=== PATIENT | female | born 1965 | race Caucasian/White ===

== ENCOUNTER 2018-08-11 15:26 | Inpatient (IN) | payer OTHER ==
[2018-08-11] MEDS ORDERED: BISACODYL 10 MG SUPP PR (17:30)
[2018-08-11] MEDS: CEFTRIAXONE 1 GM/50 ML (PMX) 50 ML IVPB (17:58)
[2018-08-11] MEDS: SOD CHLORIDE 0.9% 1,000 ML IV (17:58)
[2018-08-11] MEDS: LORAZEPAM 2 MG INJ IV ×2 (18:12→22:16)
[2018-08-11] MEDS: ALBUTEROL 0.083% (NEB) 2.5 MG/3 ML AMP HHN (20:57)
[2018-08-11] MEDS: IPRATROPIUM (NEB) 0.5 MG/2.5 ML AMP HHN (20:57)
[2018-08-11] MEDS: CHLORDIAZEPOXIDE 25 MG CAP PO (22:09)
[2018-08-11] MEDS: HEPARIN 5,000 UNIT/1 ML VIAL SC (22:09)
[2018-08-11] MEDS: morphine 2 MG INJ IV (22:09)
[2018-08-12] MEDS: IPRATROPIUM (NEB) 0.5 MG/2.5 ML AMP HHN ×6 (01:31→19:03)
[2018-08-12] MEDS: ALBUTEROL 0.083% (NEB) 2.5 MG/3 ML AMP HHN ×4 (01:31→19:03)
[2018-08-12] MEDS: PANTOPRAZOLE (EC) 40 MG TAB PO (05:24)
[2018-08-12] MEDS: HEPARIN 5,000 UNIT/1 ML VIAL SC ×2 (05:25→21:01)
[2018-08-12 08:07] LABS: ANION GAP 8 (5-13); BLOOD UREA NITROGEN 13 mg/dl (7-20); CARBON DIOXIDE 29 mmol/L (21-31); CHLORIDE 105 mmol/L (97-110); CREATININE 0.82 mg/dl (0.44-1.00); Estimated GFR > 60 mL/min (>60); GLUCOSE 100 mg/dl (70-220); POTASSIUM 3.6 mmol/L (3.5-5.1); SODIUM 142 mmol/L (135-144)
[2018-08-12] MEDS ORDERED: MULTIVITAMINS 10 ML, THIAMINE 100 MG, FOLIC ACID 1 MG in SOD CHLORIDE 0.9% 1,000 ML IVPB (09:00)
[2018-08-12] MEDS: THIAMINE 100 MG TAB PO (09:22)
[2018-08-12] MEDS: DOCUSATE SODIUM 100 MG CAP PO (09:22)
[2018-08-12] MEDS: MULTIVITAMINS/MINERALS TAB PO (09:22)
[2018-08-12] MEDS: CHLORDIAZEPOXIDE 25 MG CAP PO ×3 (09:22→20:57)
[2018-08-12] MEDS: FOLIC ACID 1 MG TAB PO (09:22)
[2018-08-12] MEDS: morphine 2 MG INJ IV ×3 (10:57→21:37)
[2018-08-12] MEDS: SOD CHLORIDE 0.9% 1,000 ML IV (13:47)
[2018-08-12] MEDS: CEFTRIAXONE 1 GM/50 ML (PMX) 50 ML IVPB (17:32)
[2018-08-13] MEDS: ALBUTEROL 0.083% (NEB) 2.5 MG/3 ML AMP HHN ×4 (00:36→20:02)
[2018-08-13] MEDS: IPRATROPIUM (NEB) 0.5 MG/2.5 ML AMP HHN ×6 (00:36→20:02)
[2018-08-13] MEDS: morphine 2 MG INJ IV ×4 (04:05→20:21)
[2018-08-13] MEDS: LORAZEPAM 2 MG INJ IV ×3 (04:34→21:18)
[2018-08-13] MEDS: PANTOPRAZOLE (EC) 40 MG TAB PO (05:08)
[2018-08-13 06:29] LABS: WHITE BLOOD COUNT 3.2 10^3/ul (4.8-10.8)
[2018-08-13 06:29] LABS: ABNORMAL IP MESSAGE 1; HEMATOCRIT 38.4 % (37.0-47.0); HEMOGLOBIN 12.5 g/dl (12.0-16.0); MEAN CORPUSCULAR HEMOGLOBIN 32.9 pg (29.0-33.0); MEAN CORPUSCULAR HGB CONC 32.6 g/dl (32.0-37.0); MEAN CORPUSCULAR VOLUME 101.1 fl (82.0-101.0); MEAN PLATELET VOLUME 9.3 fl (7.4-10.4); PLATELET COUNT 132 10^3/UL (140-415); RED CELL DISTRIBUTION WIDTH 16.7 % (11.5-14.5)
[2018-08-13 06:33] LABS: ADD MAN DIFF? YES; POSITIVE DIFF @See below
[2018-08-13 06:58] LABS: ANION GAP 9 (5-13); BLOOD UREA NITROGEN 16 mg/dl (7-20); CALCIUM 9.9 mg/dl (8.4-10.2); CARBON DIOXIDE 26 mmol/L (21-31); CHLORIDE 108 mmol/L (97-110); CREATININE 0.75 mg/dl (0.44-1.00); Estimated GFR > 60 mL/min (>60); GLUCOSE 109 mg/dl (70-220); POTASSIUM 3.8 mmol/L (3.5-5.1); SODIUM 143 mmol/L (135-144)
[2018-08-13] MEDS: FOLIC ACID 1 MG TAB PO (08:34)
[2018-08-13] MEDS: CHLORDIAZEPOXIDE 25 MG CAP PO ×3 (08:34→20:22)
[2018-08-13] MEDS: MULTIVITAMINS/MINERALS TAB PO (08:34)
[2018-08-13] MEDS: THIAMINE 100 MG TAB PO (08:34)
[2018-08-13] MEDS: HEPARIN 5,000 UNIT/1 ML VIAL SC ×2 (08:37→20:24)
[2018-08-13 10:42] LABS: ANISOCYTOSIS 1+ (0-0); BAND NEUTROPHILS #M 0.1 10^3/ul (0.0-0.6); BAND NEUTROPHILS % (M) 6 % (0-4); BASOPHILS % (M) 2 % (0-2); BURR CELLS 1+ (0-0); EOSINOPHILS % (M) 5 % (0-7); LYMPHOCYTES #M 0.9 10^3/ul (0.8-2.9); LYMPHOCYTES % (M) 31 % (15-51); METAMYELOCYTES %M 3 % (0-0); MONOCYTE #M 0.6 10^3/ul (0.3-0.9); MONOCYTES % (M) 19 % (0-11); MYELOCYTES % (M) 1 % (0-0); PLATELET ESTIMATE DECREASED; POLYCHROMASIA 2+ (0-0); REACTIVE LYMPHOCYTES% (M) 2 % (0-0); SEGMENTED NEUTROPHILS (M) % 31 % (39-77); SMUDGE%M 9 % (0-0)
[2018-08-13] MEDS: SOD CHLORIDE 0.9% 1,000 ML IV (11:50)
[2018-08-13] MEDS: CEFTRIAXONE 1 GM/50 ML (PMX) 50 ML IVPB (17:18)
[2018-08-14] MEDS: morphine 2 MG INJ IV ×4 (00:37→13:59)
[2018-08-14] MEDS: LORAZEPAM 2 MG INJ IV ×5 (01:21→22:39)
[2018-08-14] MEDS: IPRATROPIUM (NEB) 0.5 MG/2.5 ML AMP HHN ×6 (02:03→20:44)
[2018-08-14] MEDS: ALBUTEROL 0.083% (NEB) 2.5 MG/3 ML AMP HHN ×4 (02:03→20:00)
[2018-08-14] MEDS: SOD CHLORIDE 0.9% 1,000 ML IV ×2 (05:44→08:25)
[2018-08-14] MEDS: PANTOPRAZOLE (EC) 40 MG TAB PO (05:45)
[2018-08-14] MEDS: THIAMINE 100 MG TAB PO (08:26)
[2018-08-14] MEDS: HEPARIN 5,000 UNIT/1 ML VIAL SC ×2 (08:26→20:43)
[2018-08-14] MEDS: MULTIVITAMINS/MINERALS TAB PO (08:26)
[2018-08-14] MEDS: CHLORDIAZEPOXIDE 25 MG CAP PO ×3 (08:26→20:42)
[2018-08-14] MEDS: FOLIC ACID 1 MG TAB PO (08:26)
[2018-08-14] MEDS: CEFTRIAXONE 1 GM/50 ML (PMX) 50 ML IVPB (17:15)
[2018-08-14] MEDS: IBUPROFEN 400 MG TAB PO (17:50)
[2018-08-14] MEDS: ACETAMINOPHEN 325 MG TAB PO (20:42)
[2018-08-15] MEDS: IPRATROPIUM (NEB) 0.5 MG/2.5 ML AMP HHN ×6 (01:00→20:41)
[2018-08-15] MEDS: ALBUTEROL 0.083% (NEB) 2.5 MG/3 ML AMP HHN ×4 (01:15→20:00)
[2018-08-15] MEDS: KETOROLAC 15 MG INJ IV ×3 (05:10→20:52)
[2018-08-15] MEDS: PANTOPRAZOLE (EC) 40 MG TAB PO (05:18)
[2018-08-15] MEDS: LORAZEPAM 2 MG INJ IV ×3 (06:56→21:51)
[2018-08-15] MEDS: FOLIC ACID 1 MG TAB PO (08:11)
[2018-08-15] MEDS: MULTIVITAMINS/MINERALS TAB PO (08:11)
[2018-08-15] MEDS: CHLORDIAZEPOXIDE 25 MG CAP PO ×3 (08:12→20:49)
[2018-08-15] MEDS: THIAMINE 100 MG TAB PO (08:12)
[2018-08-15] MEDS: HEPARIN 5,000 UNIT/1 ML VIAL SC ×2 (08:13→20:51)
[2018-08-15 08:28] LABS: ALANINE AMINOTRANSFERASE 197 IU/L (13-69); ALBUMIN 3.7 g/dl (3.3-4.9); ALBUMIN/GLOBULIN RATIO 1.32; ALKALINE PHOSPHATASE 134 IU/L (42-121); ANION GAP 6 (5-13); ASPARTATE AMINO TRANSFERASE 150 IU/L (15-46); BILIRUBIN,INDIRECT 0.7 mg/dl (0-1.1); BILIRUBIN,TOTAL 0.7 mg/dl (0.2-1.3); BLOOD UREA NITROGEN 12 mg/dl (7-20); CALCIUM 9.4 mg/dl (8.4-10.2); CARBON DIOXIDE 28 mmol/L (21-31); CHLORIDE 108 mmol/L (97-110); CREATININE 0.72 mg/dl (0.44-1.00); Estimated GFR > 60 mL/min (>60); GLUCOSE 86 mg/dl (70-220); POTASSIUM 4.2 mmol/L (3.5-5.1); SODIUM 142 mmol/L (135-144); TOTAL PROTEIN 6.5 g/dl (6.1-8.1)
[2018-08-15 09:46] LABS: FOLATE 17.4 ng/ml (2.8-20.0)
[2018-08-15] MEDS: LAMOTRIGINE 25 MG TAB PO ×2 (11:22→20:49)
[2018-08-15] MEDS: VENLAFAXINE 75 MG TABLET PO (11:30)
[2018-08-15] MEDS: ONDANSETRON 4 MG INJ IV ×2 (12:32→20:52)
[2018-08-15] MEDS: SOD CHLORIDE 0.9% 1,000 ML IV ×2 (14:14→22:00)
[2018-08-15] MEDS: CEFTRIAXONE 1 GM/50 ML (PMX) 50 ML IVPB (18:00)
[2018-08-15] MEDS: DOCUSATE SODIUM 100 MG CAP PO (20:49)
[2018-08-16] MEDS: IPRATROPIUM (NEB) 0.5 MG/2.5 ML AMP HHN ×4 (01:00→17:00)
[2018-08-16] MEDS: ALBUTEROL 0.083% (NEB) 2.5 MG/3 ML AMP HHN ×3 (01:44→13:31)
[2018-08-16] MEDS: PANTOPRAZOLE (EC) 40 MG TAB PO (05:32)
[2018-08-16] MEDS: KETOROLAC 15 MG INJ IV ×2 (05:32→11:43)
[2018-08-16 06:38] LABS: ADD MAN DIFF? NO
[2018-08-16 06:44] LABS: ABNORMAL IP MESSAGE 1; BASOPHIL # 0.1 10^3/ul (0.0-0.1); BASOPHILS % 3.2 % (0.0-2.0); EOSINOPHILS # 0.1 10^3/ul (0.0-0.5); EOSINOPHILS % 2.8 % (0.0-7.0); HEMATOCRIT 34.9 % (37.0-47.0); HEMOGLOBIN 11.5 g/dl (12.0-16.0); LYMPHOCYTES % 33.6 % (15.0-51.0); MEAN PLATELET VOLUME 9.4 fl (7.4-10.4); MONOCYTE # 0.7 10^3/ul (0.3-0.9); MONOCYTES % 23.3 % (0.0-11.0); NEUTROPHILS % 33.6 % (39.0-77.0); PLATELET COUNT 244 10^3/UL (140-415); RED BLOOD COUNT 3.49 10^6/ul (4.20-5.40)
[2018-08-16 06:44] LABS: WHITE BLOOD COUNT 2.8 10^3/ul (4.8-10.8)
[2018-08-16] MEDS: LORAZEPAM 2 MG INJ IV (06:45)
[2018-08-16 07:09] LABS: POSITIVE DIFF @See below
[2018-08-16] MEDS: LAMOTRIGINE 25 MG TAB PO (08:26)
[2018-08-16] MEDS: VENLAFAXINE 75 MG TABLET PO (08:26)
[2018-08-16] MEDS: FOLIC ACID 1 MG TAB PO (08:27)
[2018-08-16] MEDS: HEPARIN 5,000 UNIT/1 ML VIAL SC (08:27)
[2018-08-16] MEDS: MULTIVITAMINS/MINERALS TAB PO (08:27)
[2018-08-16] MEDS: THIAMINE 100 MG TAB PO (08:27)
[2018-08-16] MEDS: CHLORDIAZEPOXIDE 25 MG CAP PO ×2 (08:27→13:27)
[2018-08-16] MEDS: ONDANSETRON 4 MG INJ IV (09:30)
[2018-08-16] MEDS: SOD CHLORIDE 0.9% 1,000 ML IV (14:41)
== END 2018-08-16 17:15 | disposition home health service (06) | DRG 897 ==
LOC: PP2 15:26 → 5EC 19:24
DX: F10.231 Alcohol dependence with withdrawal delirium (principal); D61.818 Other pancytopenia; N39.0 Urinary tract infection, site not specified; D64.9 Anemia, unspecified; M54.5 Low back pain; F31.9 Bipolar disorder, unspecified; R94.5 Abnormal results of liver function studies
CPT/HCPCS: 76705; 80048; 80053; 82607; 82746; 84703; 85025; 87081; 94640; 94664; 97116; 97161; 97530

== ENCOUNTER 2018-09-09 16:50 | Inpatient (IN) | payer OTHER ==
[2018-09-09] MEDS ORDERED: ACETAMINOPHEN 325 MG TAB PO (18:30)
[2018-09-09] MEDS: LORAZEPAM 2 MG INJ IV (19:11)
[2018-09-09] MEDS: CEFTRIAXONE 1 GM/50 ML (PMX) 50 ML IVPB (22:23)
[2018-09-09] MEDS: POTASSIUM CHLORIDE 10 MEQ in SOD CHLORIDE 0.45% 1,000 ML IV (22:23)
[2018-09-10] MEDS: ONDANSETRON 4 MG INJ IV ×4 (01:21→18:37)
[2018-09-10] MEDS: LORAZEPAM 2 MG INJ IV ×6 (01:21→23:38)
[2018-09-10] MEDS: traMADol 50 MG TAB PO ×2 (04:51→10:48)
[2018-09-10 05:45] LABS: ADD MAN DIFF? NO
[2018-09-10 05:58] LABS: EOSINOPHILS # 0.1 10^3/ul (0.0-0.5); EOSINOPHILS % 1.7 % (0.0-7.0); HEMOGLOBIN 12.7 g/dl (12.0-16.0); LYMPHOCYTES # 0.9 10^3/ul (0.8-2.9); LYMPHOCYTES % 21.4 % (15.0-51.0); MEAN CORPUSCULAR HEMOGLOBIN 33.3 pg (29.0-33.0); MEAN CORPUSCULAR HGB CONC 33.4 g/dl (32.0-37.0); MEAN CORPUSCULAR VOLUME 99.7 fl (82.0-101.0); MEAN PLATELET VOLUME 9.4 fl (7.4-10.4); MONOCYTE # 0.4 10^3/ul (0.3-0.9); MONOCYTES % 8.7 % (0.0-11.0); NEUTROPHIL # 2.8 10^3/ul (1.6-7.5); PLATELET COUNT 110 10^3/UL (140-415); RED BLOOD COUNT 3.81 10^6/ul (4.20-5.40); RED CELL DISTRIBUTION WIDTH 13.9 % (11.5-14.5)
[2018-09-10 05:58] LABS: WHITE BLOOD COUNT 4.1 10^3/ul (4.8-10.8)
[2018-09-10 06:27] LABS: ANION GAP 8 (5-13); BLOOD UREA NITROGEN 4 mg/dl (7-20); CALCIUM 9.4 mg/dl (8.4-10.2); CARBON DIOXIDE 29 mmol/L (21-31); CHLORIDE 103 mmol/L (97-110); CREATININE 0.86 mg/dl (0.44-1.00); Estimated GFR > 60 mL/min (>60); GLUCOSE 94 mg/dl (70-220); SODIUM 140 mmol/L (135-144)
[2018-09-10] MEDS: PANTOPRAZOLE (EC) 40 MG TAB PO (06:30)
[2018-09-10 07:42] LABS: POTASSIUM 4.3 mmol/L (3.5-5.1)
[2018-09-10] MEDS: MULTIVITAMINS 10 ML, THIAMINE 100 MG, FOLIC ACID 1 MG in SOD CHLORIDE 0.9% 1,000 ML IVPB (09:16)
[2018-09-10] MEDS: POTASSIUM CHLORIDE 10 MEQ in SOD CHLORIDE 0.45% 1,000 ML IV ×2 (09:18→18:37)
[2018-09-10] MEDS ORDERED: ONDANSETRON 4 MG INJ IV (16:00)
[2018-09-10 16:45] LABS: ALANINE AMINOTRANSFERASE 137 IU/L (13-69); ALBUMIN 4.5 g/dl (3.3-4.9); ALBUMIN/GLOBULIN RATIO 1.87; ALKALINE PHOSPHATASE 88 IU/L (42-121); ANION GAP 10 (5-13); ASPARTATE AMINO TRANSFERASE 100 IU/L (15-46); BILIRUBIN,INDIRECT 1.1 mg/dl (0-1.1); BILIRUBIN,TOTAL 1.1 mg/dl (0.2-1.3); BLOOD UREA NITROGEN 4 mg/dl (7-20); CALCIUM 9.7 mg/dl (8.4-10.2); CARBON DIOXIDE 26 mmol/L (21-31); CHLORIDE 103 mmol/L (97-110); CREATININE 1.01 mg/dl (0.44-1.00); Estimated GFR 57 mL/min (>60); GLUCOSE 83 mg/dl (70-220); POTASSIUM 3.8 mmol/L (3.5-5.1); SODIUM 139 mmol/L (135-144); TOTAL PROTEIN 6.9 g/dl (6.1-8.1)
[2018-09-10] MEDS: CEFTRIAXONE 1 GM/50 ML (PMX) 50 ML IVPB (18:34)
[2018-09-10 18:36] LABS: ADD UMIC NO; UR ASCORBIC ACID NEGATIVE (NEGATIVE); UR BILIRUBIN (Dip) NEGATIVE (NEGATIVE); UR BLOOD (Dip) NEGATIVE (NEGATIVE); UR CLARITY CLEAR (CLEAR); UR COLOR COLORLESS (YELLOW); UR GLUCOSE (Dip) NEGATIVE (NEGATIVE); UR KETONES (Dip) NEGATIVE (NEGATIVE); UR LEUKOCYTE ESTERASE (Dip) NEGATIVE Leu/ul (NEGATIVE); UR NITRITE (Dip) NEGATIVE (NEGATIVE); UR SPECIFIC GRAVITY (Dip) 1.002 (1.003-1.030); UR TOTAL PROTEIN (Dip) NEGATIVE (NEGATIVE); UR UROBILINOGEN (Dip) NEGATIVE (NEGATIVE)
[2018-09-10] MEDS: morphine 2 MG INJ IV (20:14)
[2018-09-11] MEDS: morphine 2 MG INJ IV ×5 (00:55→18:08)
[2018-09-11] MEDS: ONDANSETRON 4 MG INJ IV ×3 (04:04→16:21)
[2018-09-11] MEDS: LORAZEPAM 2 MG INJ IV ×5 (04:04→20:51)
[2018-09-11] MEDS: PANTOPRAZOLE (EC) 40 MG TAB PO (05:35)
[2018-09-11] MEDS: MULTIVITAMINS 10 ML, THIAMINE 100 MG, FOLIC ACID 1 MG in SOD CHLORIDE 0.9% 1,000 ML IVPB (08:17)
[2018-09-11] MEDS: POTASSIUM CHLORIDE 10 MEQ in SOD CHLORIDE 0.45% 1,000 ML IV ×2 (11:43→20:47)
[2018-09-11] MEDS: MECLIZINE 12.5 MG TAB PO ×2 (12:16→21:59)
[2018-09-11] MEDS: ESTROGENS CONJUGATED 42.5 GM VAG CR VAG (16:14)
[2018-09-11] MEDS: LAMOTRIGINE 25 MG TAB PO ×2 (16:15→21:59)
[2018-09-11] MEDS: VENLAFAXINE 75 MG TABLET PO (16:44)
[2018-09-11] MEDS: CEFTRIAXONE 1 GM/50 ML (PMX) 50 ML IVPB (20:48)
[2018-09-11] MEDS: CHLORDIAZEPOXIDE 25 MG CAP PO (20:53)
[2018-09-12] MEDS: POTASSIUM CHLORIDE 10 MEQ in SOD CHLORIDE 0.45% 1,000 ML IV (01:36)
[2018-09-12] MEDS: PANTOPRAZOLE (EC) 40 MG TAB PO (06:00)
[2018-09-12 06:18] LABS: ALANINE AMINOTRANSFERASE 133 IU/L (13-69); ALBUMIN/GLOBULIN RATIO 1.48; ALKALINE PHOSPHATASE 86 IU/L (42-121); ANION GAP 9 (5-13); ASPARTATE AMINO TRANSFERASE 87 IU/L (15-46); BILIRUBIN,INDIRECT 0.8 mg/dl (0-1.1); BILIRUBIN,TOTAL 0.8 mg/dl (0.2-1.3); BLOOD UREA NITROGEN 12 mg/dl (7-20); CALCIUM 9.5 mg/dl (8.4-10.2); CARBON DIOXIDE 28 mmol/L (21-31); CHLORIDE 105 mmol/L (97-110); CREATININE 0.92 mg/dl (0.44-1.00); Estimated GFR > 60 mL/min (>60); GLUCOSE 92 mg/dl (70-220); POTASSIUM 4.3 mmol/L (3.5-5.1); SODIUM 142 mmol/L (135-144); TOTAL PROTEIN 6.7 g/dl (6.1-8.1)
[2018-09-12 06:20] LABS: MAGNESIUM 1.8 mg/dl (1.7-2.5)
[2018-09-12 06:20] LABS: PHOSPHORUS 5.2 mg/dl (2.5-4.9)
[2018-09-12] MEDS: ONDANSETRON 4 MG INJ IV ×3 (06:26→19:41)
[2018-09-12] MEDS: LORAZEPAM 2 MG INJ IV ×3 (06:26→21:28)
[2018-09-12] MEDS: morphine 2 MG INJ IV ×4 (06:27→19:42)
[2018-09-12] MEDS: LAMOTRIGINE 25 MG TAB PO ×2 (08:56→20:28)
[2018-09-12] MEDS: CHLORDIAZEPOXIDE 25 MG CAP PO ×3 (08:56→20:27)
[2018-09-12] MEDS: MECLIZINE 12.5 MG TAB PO ×3 (08:56→20:27)
[2018-09-12] MEDS: VENLAFAXINE 75 MG TABLET PO (08:57)
[2018-09-12] MEDS: MULTIVITAMINS 10 ML, THIAMINE 100 MG, FOLIC ACID 1 MG in SOD CHLORIDE 0.9% 1,000 ML IVPB (08:57)
[2018-09-12] MEDS: ESTROGENS CONJUGATED 42.5 GM VAG CR VAG (09:00)
[2018-09-12] MEDS: PROPOFOL 20 ML (13:16)
[2018-09-12] MEDS: LIDOCAINE 2% (SDV) 5 ML INJ (13:16)
[2018-09-12] MEDS: FENTAnyl 50 MCG/ML VIAL (13:16)
[2018-09-12] MEDS: CIPROFLOXACIN 250 MG TAB PO (18:06)
[2018-09-13] MEDS: morphine 2 MG INJ IV ×3 (03:07→13:06)
[2018-09-13] MEDS: LORAZEPAM 2 MG INJ IV ×3 (04:25→15:40)
[2018-09-13] MEDS: ONDANSETRON 4 MG INJ IV ×2 (04:25→20:04)
[2018-09-13] MEDS: PANTOPRAZOLE (EC) 40 MG TAB PO (05:34)
[2018-09-13] MEDS: CIPROFLOXACIN 250 MG TAB PO ×2 (05:34→17:09)
[2018-09-13 05:44] LABS: ADD MAN DIFF? NO
[2018-09-13 05:50] LABS: BASOPHILS % 1.2 % (0.0-2.0); EOSINOPHILS # 0.3 10^3/ul (0.0-0.5); EOSINOPHILS % 7.6 % (0.0-7.0); HEMATOCRIT 37.9 % (37.0-47.0); HEMOGLOBIN 12.5 g/dl (12.0-16.0); LYMPHOCYTES % 30.2 % (15.0-51.0); MEAN CORPUSCULAR HEMOGLOBIN 33.4 pg (29.0-33.0); MEAN CORPUSCULAR VOLUME 101.3 fl (82.0-101.0); MEAN PLATELET VOLUME 9.5 fl (7.4-10.4); MONOCYTE # 0.4 10^3/ul (0.3-0.9); MONOCYTES % 11.2 % (0.0-11.0); NEUTROPHIL # 1.6 10^3/ul (1.6-7.5); NEUTROPHILS % 49.2 % (39.0-77.0); PLATELET COUNT 128 10^3/UL (140-415); RED BLOOD COUNT 3.74 10^6/ul (4.20-5.40); RED CELL DISTRIBUTION WIDTH 13.6 % (11.5-14.5)
[2018-09-13 05:50] LABS: WHITE BLOOD COUNT 3.3 10^3/ul (4.8-10.8)
[2018-09-13 06:16] LABS: MAGNESIUM 1.9 mg/dl (1.7-2.5)
[2018-09-13 06:16] LABS: PHOSPHORUS 3.9 mg/dl (2.5-4.9)
[2018-09-13 06:20] LABS: ALANINE AMINOTRANSFERASE 126 IU/L (13-69); ALBUMIN/GLOBULIN RATIO 1.42; ALKALINE PHOSPHATASE 82 IU/L (42-121); ANION GAP 9 (5-13); ASPARTATE AMINO TRANSFERASE 68 IU/L (15-46); BILIRUBIN,INDIRECT 0.8 mg/dl (0-1.1); BILIRUBIN,TOTAL 0.8 mg/dl (0.2-1.3); BLOOD UREA NITROGEN 15 mg/dl (7-20); CALCIUM 9.6 mg/dl (8.4-10.2); CARBON DIOXIDE 27 mmol/L (21-31); CHLORIDE 104 mmol/L (97-110); CREATININE 0.92 mg/dl (0.44-1.00); Estimated GFR > 60 mL/min (>60); GLUCOSE 92 mg/dl (70-220); POTASSIUM 3.8 mmol/L (3.5-5.1); SODIUM 140 mmol/L (135-144); TOTAL PROTEIN 6.8 g/dl (6.1-8.1)
[2018-09-13] MEDS: MECLIZINE 12.5 MG TAB PO ×3 (07:50→20:04)
[2018-09-13] MEDS: LAMOTRIGINE 25 MG TAB PO ×2 (07:51→20:03)
[2018-09-13] MEDS: CHLORDIAZEPOXIDE 25 MG CAP PO ×2 (07:51→20:04)
[2018-09-13] MEDS: VENLAFAXINE 75 MG TABLET PO (07:51)
[2018-09-13] MEDS: ESTROGENS CONJUGATED 42.5 GM VAG CR VAG (07:53)
[2018-09-14] MEDS: morphine 2 MG INJ IV ×3 (01:45→10:56)
[2018-09-14] MEDS: LORAZEPAM 2 MG INJ IV ×2 (02:56→08:36)
[2018-09-14] MEDS: PANTOPRAZOLE (EC) 40 MG TAB PO (05:41)
[2018-09-14] MEDS: CIPROFLOXACIN 250 MG TAB PO (05:41)
[2018-09-14] MEDS: VENLAFAXINE 75 MG TABLET PO (08:35)
[2018-09-14] MEDS: CHLORDIAZEPOXIDE 25 MG CAP PO (08:35)
[2018-09-14] MEDS: LAMOTRIGINE 25 MG TAB PO (08:35)
[2018-09-14] MEDS: MECLIZINE 12.5 MG TAB PO ×2 (08:35→12:30)
[2018-09-14] MEDS: ESTROGENS CONJUGATED 42.5 GM VAG CR VAG (08:36)
== END 2018-09-14 15:09 | disposition still patient (30) | DRG 381 ==
LOC: PP2 16:50 → 5EC 09-11 17:05
PROC: 0DB68ZX Excision of Stomach, Via Natural or Artificial Opening Endoscopic, Diagnostic (ICD-10-PCS; principal; 2018-09-12 12:34)
DX: K22.10 Ulcer of esophagus without bleeding (principal); F31.81 Bipolar II disorder; K29.00 Acute gastritis without bleeding; F10.10 Alcohol abuse, uncomplicated; Z91.81 History of falling
CPT/HCPCS: 74181; 80048; 80053; 81003; 83735; 84100; 85025; 87081; 87086; 88305; 97110; 97116; 97161; 97530